=== PATIENT | male | born 1940 | race Caucasian/White ===

== ENCOUNTER 2020-02-28 13:08 | Outpatient (CLI) | payer MEDICARE, SELFPAY | END 2020-02-28 13:09 | disposition home or self-care (01) | LOC: WOUND 13:17 | PROVIDERS: Family Provider Family Medicine; Visit Provider Nurse Practitioner Family | DX: I96 Gangrene, not elsewhere classified (principal); L89.313 Pressure ulcer of right buttock, stage 3; L89.323 Pressure ulcer of left buttock, stage 3 | CPT/HCPCS: 11042; G0463 ==

== ENCOUNTER 2020-03-09 13:02 | Outpatient (CLI) | payer MEDICARE, SELFPAY | END 2020-03-09 13:03 | disposition home or self-care (01) | PROVIDERS: Family Provider Family Medicine; Visit Provider Nurse Practitioner Family | DX: I96 Gangrene, not elsewhere classified (principal); L89.313 Pressure ulcer of right buttock, stage 3; L89.323 Pressure ulcer of left buttock, stage 3 | CPT/HCPCS: 97597 ==

== ENCOUNTER 2020-03-23 10:04 | Outpatient (CLI) | payer MEDICARE, SELFPAY | END 2020-03-23 10:05 | disposition home or self-care (01) | LOC: WOUND 10:04 | PROVIDERS: Family Provider Family Medicine; Visit Provider Nurse Practitioner Family | DX: I96 Gangrene, not elsewhere classified (principal); L89.313 Pressure ulcer of right buttock, stage 3; L89.323 Pressure ulcer of left buttock, stage 3 | CPT/HCPCS: 11042 ==

== ENCOUNTER 2020-04-06 10:05 | Outpatient (RCR) | payer MEDICARE, SELFPAY | END 2020-04-06 23:59 | disposition home or self-care (01) | LOC: WOUND 10:05 | PROVIDERS: Family Provider Family Medicine; Visit Provider Nurse Practitioner Family | DX: I96 Gangrene, not elsewhere classified (principal); L89.323 Pressure ulcer of left buttock, stage 3; L89.313 Pressure ulcer of right buttock, stage 3 | CPT/HCPCS: 11042 ==

== ENCOUNTER 2020-04-20 10:16 | Outpatient (CLI) | payer MEDICARE, SELFPAY | END 2020-04-20 10:17 | disposition home or self-care (01) | LOC: WOUND 10:17 | PROVIDERS: Family Provider Family Medicine; Visit Provider Nurse Practitioner Family | DX: L89.313 Pressure ulcer of right buttock, stage 3 (principal) | CPT/HCPCS: 11042 ==

== ENCOUNTER 2020-06-05 13:55 | Outpatient (CLI) | payer MEDICARE, SELFPAY | END 2020-06-05 13:56 | disposition home or self-care (01) | LOC: WOUND 13:56 | PROVIDERS: Family Provider Family Medicine; Visit Provider Nurse Practitioner Family | DX: I96 Gangrene, not elsewhere classified (principal); L89.322 Pressure ulcer of left buttock, stage 2 | CPT/HCPCS: 11042; G0463 ==

== ENCOUNTER 2020-06-12 13:46 | Outpatient (CLI) | payer MEDICARE, SELFPAY | END 2020-06-12 13:47 | disposition home or self-care (01) | LOC: WOUND 13:47 | PROVIDERS: Family Provider Family Medicine; Visit Provider Thoracic Surgery (Cardiothoracic Vascular Surgery) | DX: L89.322 Pressure ulcer of left buttock, stage 2 (principal) | CPT/HCPCS: 11042 ==

== ENCOUNTER 2020-06-13 14:06 | Outpatient (RCR) | payer MEDICARE, SELFPAY | END 2020-07-05 23:59 | disposition home or self-care (01) | LOC: SPT 14:06 | PROVIDERS: Family Provider Thoracic Surgery (Cardiothoracic Vascular Surgery); PCP Family Medicine; Visit Provider Thoracic Surgery (Cardiothoracic Vascular Surgery) | DX: I89.0 Lymphedema, not elsewhere classified (principal) | CPT/HCPCS: 29581; 97140; 97161 ==

== ENCOUNTER 2020-06-19 13:50 | Outpatient (CLI) | payer MEDICARE, SELFPAY | END 2020-06-19 13:51 | disposition home or self-care (01) | LOC: WOUND 13:51 | PROVIDERS: Family Provider Thoracic Surgery (Cardiothoracic Vascular Surgery); PCP Family Medicine; Visit Provider Nurse Practitioner Family | DX: L89.322 Pressure ulcer of left buttock, stage 2 (principal) | CPT/HCPCS: 11042 ==

== ENCOUNTER 2020-06-26 13:02 | Outpatient (CLI) | payer MEDICARE, SELFPAY | END 2020-06-26 13:03 | disposition home or self-care (01) | LOC: WOUND 13:04 | PROVIDERS: Family Provider Thoracic Surgery (Cardiothoracic Vascular Surgery); PCP Family Medicine; Visit Provider Nurse Practitioner Family | DX: L89.322 Pressure ulcer of left buttock, stage 2 (principal) | CPT/HCPCS: 11042 ==

== ENCOUNTER 2020-07-03 13:29 | Outpatient (CLI) | payer MEDICARE, SELFPAY | END 2020-07-03 13:30 | disposition home or self-care (01) | LOC: WOUND 13:31 | PROVIDERS: Family Provider Thoracic Surgery (Cardiothoracic Vascular Surgery); PCP Family Medicine; Visit Provider Nurse Practitioner Family | DX: I96 Gangrene, not elsewhere classified (principal); L89.322 Pressure ulcer of left buttock, stage 2 | CPT/HCPCS: 11042 ==

== ENCOUNTER 2020-07-10 13:07 | Outpatient (CLI) | payer MEDICARE, SELFPAY | END 2020-07-10 13:08 | disposition home or self-care (01) | LOC: WOUND 13:09 | PROVIDERS: Family Provider Thoracic Surgery (Cardiothoracic Vascular Surgery); PCP Family Medicine; Visit Provider Nurse Practitioner Family | DX: I96 Gangrene, not elsewhere classified (principal); L89.322 Pressure ulcer of left buttock, stage 2 | CPT/HCPCS: 11042 ==

== ENCOUNTER 2020-07-17 13:05 | Outpatient (CLI) | payer MEDICARE, SELFPAY | END 2020-07-17 13:06 | disposition home or self-care (01) | LOC: WOUND 13:07 | PROVIDERS: Family Provider Thoracic Surgery (Cardiothoracic Vascular Surgery); PCP Family Medicine; Visit Provider Nurse Practitioner Family | DX: I96 Gangrene, not elsewhere classified (principal); L89.322 Pressure ulcer of left buttock, stage 2 | CPT/HCPCS: 11042 ==

== ENCOUNTER 2020-07-24 10:40 | Outpatient (CLI) | payer MEDICARE, SELFPAY | END 2020-07-24 10:41 | disposition home or self-care (01) | LOC: WOUND 10:42 | PROVIDERS: Family Provider Thoracic Surgery (Cardiothoracic Vascular Surgery); PCP Family Medicine; Visit Provider Nurse Practitioner Family | DX: I96 Gangrene, not elsewhere classified (principal); L89.322 Pressure ulcer of left buttock, stage 2 | CPT/HCPCS: 11042 ==

== ENCOUNTER 2020-07-31 13:09 | Outpatient (CLI) | payer MEDICARE, SELFPAY | END 2020-07-31 13:10 | disposition home or self-care (01) | LOC: WOUND 13:10 | PROVIDERS: Family Provider Thoracic Surgery (Cardiothoracic Vascular Surgery); PCP Family Medicine; Visit Provider Thoracic Surgery (Cardiothoracic Vascular Surgery) | DX: I96 Gangrene, not elsewhere classified (principal); L89.322 Pressure ulcer of left buttock, stage 2 | CPT/HCPCS: 97597 ==

== ENCOUNTER 2020-08-07 14:48 | Outpatient (CLI) | payer MEDICARE, SELFPAY | END 2020-08-07 14:49 | disposition home or self-care (01) | LOC: WOUND 14:49 | PROVIDERS: Family Provider Thoracic Surgery (Cardiothoracic Vascular Surgery); PCP Family Medicine; Visit Provider Thoracic Surgery (Cardiothoracic Vascular Surgery) | DX: I96 Gangrene, not elsewhere classified (principal); L89.322 Pressure ulcer of left buttock, stage 2 | CPT/HCPCS: 99212 ==

== ENCOUNTER 2020-10-27 06:53 | Outpatient (CLI) | payer MEDICARE, SELFPAY ==
--- NOTE | 2020-10-27 07:15 | MR_ITS ---
WS: [id number] MRI HEAD WITHOUT CONTRAST TECHNIQUE: Sagittal T1, T2 axial, T2 axial FLAIR, axial and coronal T1 images, axial susceptibility w eighted imaging, axial diffusion weighted images, and coronal T2 images were obtained. CLINICAL INFORMATION: VISUAL HALLUCINATIONS, MEMORY LOSS COMPARISON: None. FINDINGS: No evidence restricted diffusion to suggest acute ischemia. Ventricular system and basal cisterns are patent. Advanced small vessel changes with moderate parenchymal volume loss. Small vessel changes in the josé. Mild brainstem atrophy. 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 Normal vascular flow voids at the skull base. No extra-ax ial fluid collections. No evidence of mass or mass effect. Mild mucosal thickening in the paranasal s inuses. Mastoid air cells are well aerated. Mild central canal stenosis in the upper cervical spine. No hemosiderin on the susceptibility weighte d images. 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 Normal optic chiasm and pituitary infundibulum. Normal cavernous sinuses and Meckel's cave. MR/MR head wo con* [id number] IMPRESSION: 1. No evidence of restricted diffusion to suggest acute ischemia. 2. Advanced small vessel changes with moderate parenchymal volume loss. 3. 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 4. Mild brainstem atrophy. Advanced symmetric atrophy involving the temporal l obes and hippocampal formations. 5. Atrophy more prominent involving the frontal lobes, mesial temporal lobes a nd brainstem. Recommend Neurology correlation for neurodegenerative dementia. 6. No hemosiderin on susceptibly weighted images.
== END 2020-10-27 06:54 | disposition home or self-care (01) ==
LOC: RADSHAW 06:55
PROVIDERS: PCP Family Medicine; Visit Provider Family Medicine
DX: R44.1 Visual hallucinations (principal); R41.3 Other amnesia; R40.4 Transient alteration of awareness; I63.9 Cerebral infarction, unspecified; G31.9 Degenerative disease of nervous system, unspecified
CPT/HCPCS: 70551